=== PATIENT | female | born 1960 | race Caucasian/White ===

== ENCOUNTER 2017-04-14 09:46 | Emergency (ER) | payer OTHER ==
[~2017-04-14] VITALS: Ht 172.7 cm; Wt 70.9 kg
[2017-04-14 09:51] VITALS: TEMP 36.9; Ht 172.7 cm; Wt 70.9 kg
[2017-04-14 10:00] VITALS: O2SAT 97
--- NOTE | 2017-04-14 10:24 | EMERGENCY ROOM VISIT NOTE ---
History Report prepared by Elias: Jos Story Under the Supervision of: Dr. Jose Atkins M.D. First contact with patient: 10:12 Chief Complaint: CHEST PAIN Stated Complaint: CHEST DISCOMFORT Nursing Triage Summary: triage note: Pt reports right sided chest pain since 0830 today while pt was walking. pt denies any cardiac hx. History of Present Illness The patient is a 57 year old female who presents to the Emergency Room with complaints of right sided chest pain that began 2 hours ago. She rates her pain an 8/10 in severity currently. This morning, she was walking her dog like she does every morning when the pain began. She notes that her dog did pull her along, but she notes that it does not feel like a muscle pain. Her pain began in her right chest, but has been "moving." Her pain is now radiating into her back near her right shoulder blade. Her pain is exacerbated with deep breaths. She notes that the pain is making her dizzy. This has never happened to her before. She denies any cough, fevers, chills, abdominal pain, shortness of breath, melena, hematochezia, diarrhea, leg pain/cramping, or abnormal urinary symptoms. 18 years ago, she went into SVT with a mitral valve prolapse and had an ablation. She has never had a blood clot. She is not on blood thinners. She notes that she was on a control pill for 30 years, but not anymore because she experienced menopause. Source of History: patient Onset: 2 hours ago Position: chest (right) Symptom Intensity: 8/10 Quality: sharp Timing: constant Modifying Factors (Worsening): breathing Associated Symptoms: + back pain, No fevers, No chills, No cough, No SOB, No abdominal pain, No melena, No hematochezia, No diarrhea, No urinary symptoms Note: She is having some dizziness. Review of Systems All systems have been listed, reviewed, and are negative other than those previously mentioned. Please see Additional Medical History Sheet. Past Medical & Surgical Medical Problems: (1) SVT (supraventricular tachycardia) Family History Omitted secondary to the patient's age. Social History Smoking Status: Never Smoker Smokeless Tobacco Use: No Drug Use: none Housing Status: lives with family Occupation Status: employed Current/Historical Medications No Active Prescriptions or Reported Meds Allergies Coded Allergies: Bacitracin (Unverified Allergy, Unknown, ., 04/14/17) Neomycin (Unverified Allergy, Unknown, ., 04/14/17) Polymyxin B (Unverified Allergy, Unknown, ., 04/14/17) Sulfa Antibiotics (Unverified Allergy, Unknown, ., 04/14/17) Physical Exam Vital Signs Date Time Temp Pulse Resp B/P (MAP) Pulse Ox O2 Delivery O2 Flow Rate FiO2 04/14/17 12:35 58 20 103/65 99 04/14/17 11:00 55 16 109/61 98 Room Air 04/14/17 10:02 61 04/14/17 10:00 97 Trach Collar 04/14/17 09:51 36.9 78 18 136/83 97 Room Air Physical Exam GENERAL: Patient awake, alert, oriented x 3. Patient follows commands. Patient does not appear toxic. Patient is adequately hydrated and well- nourished. SKIN: No erythema, pallor, cyanosis or rash HEENT: Normal head, pupils equal, reactive to light and accommodation. LUNGS: Clear to auscultation. No wheezes, no rales, no rhonchi. HEART: No murmurs. No gallops. No rubs Chest Wall: Patient has bilateral breast implants. Chest wall is nontender to palpation. No signs of trauma or infection. ABDOMEN: No masses, no rebound, no hepatomegaly or splenomegaly. EXTREMITIES: No signs of trauma. No pedal or pretibial edema. No calf or thigh tenderness. NEUROLOGIC: Cranial nerves II-XII within normal limits. No gross motor sensory function deficits. Medical Decision & Procedures ER Provider Diagnostic Interpretation: Radiology results as stated below per my review and radiologist interpretation: CHEST 2 VIEWS ROUTINE CLINICAL HISTORY: right sided chest pain dyspnea COMPARISON STUDY: No previous studies for comparison. FINDINGS: The bones soft tissues and hemidiaphragms are normal. The cardiomediastinal silhouette is normal. The lungs are clear. The pulmonary vasculature is normal. IMPRESSION: Negative chest. The above report was generated using voice recognition software. It may contain grammatical, syntax or spelling errors. Electronically signed by: Marshall Lopez M.D. 04/14/2017 11:29 AM Dictated Date/Time: 04/14/2017 11:29 AM Laboratory Results 04/14/17 09:55 Red Blood Count 4.45, Mean Corpuscular Volume 94.4, Mean Corpuscular Hemoglobin 30.6, Mean Corpuscular Hemoglobin Concent 32.4, Mean Platelet Volume 11.1, Neutrophils (%) (Auto) 57.8, Lymphocytes (%) (Auto) 31.6, Monocytes (%) (Auto) 8.2, Eosinophils (%) (Auto) 2.0, Basophils (%) (Auto) 0.2, Neutrophils # (Auto) 2.83, Lymphocytes # (Auto) 1.55, Monocytes # (Auto) 0.40, Eosinophils # (Auto) 0.10, Basophils # (Auto) 0.01 04/14/17 09:55 Test 04/14/17 09:55 04/14/17 10:30 04/14/17 11:30 White Blood Count 4.90 K/uL (4.8-10.8) Red Blood Count 4.45 M/uL (4.2-5.4) Hemoglobin 13.6 g/dL (12.0-16.0) Hematocrit 42.0 % (37-47) Mean Corpuscular Volume 94.4 fL (80-100) Mean Corpuscular Hemoglobin 30.6 pg (25-34) Mean Corpuscular Hemoglobin Concent 32.4 g/dl (32-36) Platelet Count 179 K/uL (130-400) Mean Platelet Volume 11.1 fL (7.4-10.4) Neutrophils (%) (Auto) 57.8 % Lymphocytes (%) (Auto) 31.6 % Monocytes (%) (Auto) 8.2 % Eosinophils (%) (Auto) 2.0 % Basophils (%) (Auto) 0.2 % Neutrophils # (Auto) 2.83 K/uL (1.4-6.5) Lymphocytes # (Auto) 1.55 K/uL (1.2-3.4) Monocytes # (Auto) 0.40 K/uL (0.11-0.59) Eosinophils # (Auto) 0.10 K/uL (0-0.5) Basophils # (Auto) 0.01 K/uL (0-0.2) RDW Standard Deviation 43.8 fL (36.4-46.3) RDW Coefficient of Variation 12.7 % (11.5-14.5) Immature Granulocyte % (Auto) 0.2 % Immature Granulocyte # (Auto) 0.01 K/uL (0.00-0.02) Anion Gap 7.0 mmol/L (3-11) Est Creatinine Clear Calc Drug Dose 76.3 ml/min Estimated GFR () 91.4 Estimated GFR (Non- 78.8 BUN/Creatinine Ratio 15.8 (10-20) Calcium Level 9.1 mg/dl (8.5-10.1) Total Bilirubin 0.5 mg/dl (0.2-1) Aspartate Amino Transf (AST/SGOT) 24 U/L (15-37) Alanine Aminotransferase (ALT/SGPT) 28 U/L (12-78) Alkaline Phosphatase 83 U/L (45-117) Total Protein 7.1 gm/dl (6.4-8.2) Albumin 3.9 gm/dl (3.4-5.0) Globulin 3.2 gm/dl (2.5-4.0) Albumin/Globulin Ratio 1.2 (0.9-2) Thyroid Stimulating Hormone (TSH) 2.960 uIu/ml (0.300-4.500) Bedside D-Dimer 285 ng/mlFEU (0-450) Bedside Troponin I < 0.030 ng/ml (0-0.045) Urine Color YELLOW Urine Appearance CLEAR (CLEAR) Urine pH 7.5 (4.5-7.5) Urine Specific [place] 1.016 (1.000-1.030) Urine Protein NEG (NEG) Urine Glucose (UA) NEG (NEG) Urine Ketones NEG (NEG) Urine Occult Blood NEG (NEG) Urine Nitrite NEG (NEG) Urine Bilirubin NEG (NEG) Urine Urobilinogen NEG (NEG) Urine Leukocyte Esterase MODERATE (NEG) Urine WBC (Auto) 1-5 /hpf (0-5) Urine RBC (Auto) 0-4 /hpf (0-4) Urine Hyaline Casts (Auto) 0 /lpf (0-5) Urine Epithelial Cells (Auto) >30 /lpf (0-5) Urine Bacteria (Auto) NEG (NEG) Laboratory results as stated above per my review. ECG Indication: chest pain Rate (beats per minute): 58 Rhythm: sinus bradycardia Findings: no acute ischemic change, no ectopy, other (Rightward axis) ED Course 1012: Past medical records reviewed. The patient was evaluated in room A4B. A complete history and physical examination was performed. 1220: Upon reevaluation, the patient appeared to have improvement of her symptoms. I discussed today's findings with her. She verbalized agreement of the treatment plan. She was discharged home. Medical Decision I considered multiple diagnoses including myocardial infarction, chest wall pain , pericarditis, myocarditis, aortic emergencies, pulmonary embolism, congestive heart failure, GI causes, and other significant cardiopulmonary disorders. Multiple labs, EKG and imaging were obtained. D-dimer was not elevated. The patient has a normal white count. Electrolytes are within normal range. The patient has no evidence of a cardiopulmonary cause for her pain. I believe her pain is musculoskeletal in nature. The patient has moderate leukocyte estrace on her urinalysis but is asymptomatic and has no significant white cells in her urine. A urine culture is pending. The patient did improve while here most likely because she took ibuprofen prior to entry. The patient will continue taking that medication at home. She was encouraged to apply heat intermittently to her chest. The patient is to follow- up with a family physician in 3 days if symptoms are not subsiding. Medication Reconcilliation Current Medication List: was personally reviewed by me Blood Pressure Screening Patient's blood pressure: Normal blood pressure Blood pressure disposition: Did not require urgent referral Impression Primary Impression: Chest wall pain Scribe Attestation The scribe's documentation has been prepared under my direction and personally reviewed by me in its entirety. I confirm that the note above accurately reflects all work, treatment, procedures, and medical decision making performed by me. Departure Information Dispostion Home / Self-Care Prescriptions No Active Prescriptions or Reported Meds Referrals No Doctor, Assigned (PCP) Forms Call Back Authorization, HOME CARE DOCUMENTATION FORM, IMPORTANT VISIT INFORMATION Patient Instructions ED Chest Pain Costochondritis, My [facility] Additional Instructions 600 mg ibuprofen every 6 hours until pain has resolved. Apply heat intermittently to your chest over the next 2-3 days. Follow-up with a family physician in 3 days if symptoms are not subsiding. Return here sooner if pain is getting worse.
[2017-04-14 10:28] LABS: BASO % 0.2 %; BASO ABS # 0.01 K/uL (0-0.2); COMPLETE YES; IG% 0.2 %; LYMPH % 31.6 %; LYMPH ABS # 1.55 K/uL (1.2-3.4); MEAN CELL VOLUME 94.4 fL (80-100); MEAN CORPUSCULAR HEMOGLOBIN 30.6 pg (25-34); MEAN CORPUSCULAR HGB CONC 32.4 g/dl (32-36); MEAN PLATELET VOLUME 11.1 fL (7.4-10.4); MONO % 8.2 %; NEUT % 57.8 %; PLATELET COUNT 179 K/uL (130-400); RED BLOOD COUNT 4.45 M/uL (4.2-5.4)
[2017-04-14 10:35] LABS: BUN/CREATININE RATIO 15.8 (10-20); CALCIUM 9.1 mg/dl (8.5-10.1); CREATININE 0.83 mg/dl (0.60-1.20); POTASSIUM 3.9 mmol/L (3.5-5.1)
[2017-04-14 10:45] LABS: ALB/GLOB RATIO 1.2 (0.9-2); THYROID STIMULATING HORMONE 2.96 uIu/ml (0.300-4.500)
[2017-04-14 10:50] LABS: POINT OF CARE TROPONIN I < 0.030 ng/ml (0-0.045)
--- NOTE | 2017-04-14 11:31 | DIAGNOSTIC IMAGING REPORT ---
CHEST 2 VIEWS ROUTINE CLINICAL HISTORY: right sided chest pain dyspnea COMPARISON STUDY: No previous studies for comparison. FINDINGS: The bones soft tissues and hemidiaphragms are normal. The cardiomediastinal silhouette is normal. The lungs are clear. The pulmonary vasculature is normal. IMPRESSION: Negative chest. The above report was generated using voice recognition software. It may contain grammatical, syntax or spelling errors. Electronically signed by: Marshall Lopez M.D. 04/14/2017 11:29 AM Dictated Date/Time: 04/14/2017 11:29 AM
[2017-04-14 11:53] LABS: URINE APPEARANCE CLEAR (CLEAR); URINE BILIRUBIN NEG (NEG); URINE COLOR YELLOW; URINE EPITHELIAL CELL AUTO >30 /lpf (0-5); URINE NITRITE NEG (NEG); URINE PH 7.5 (4.5-7.5); URINE SPECIFIC GRAVITY 1.016 (1.000-1.030); UROBILINOGEN NEG (NEG); ZZUR CULT IF INDIC CLEAN CATCH NO
[2017-04-14 11:55] LABS: MANUAL MICROSCOPIC REQUIRED? NO; REVIEW REQ? NO
[2017-04-14 12:35] VITALS: BP 103/65; PULSE 58; O2SAT 99
--- NOTE | 2017-04-16 17:43 | Pharmacy Progress Note ---
ED Pharmacist Culture FollowUp Date of Service: Apr 16, 2017. Patient presented with chest pain and urine culture revealed group B beta strep. She was not discharged with any antibiotics. Discussed with Dr. Weldon , given patient had no overt urinary symptoms and UA was negative with >30 epithelial cells, no intervention required at this time as this most likely is a contaminate.
== END 2017-04-14 12:37 | disposition home or self-care (01) ==
LOC: C.EDB 09:50 → C.EDA 12:37
DX: R07.89 Other chest pain (principal)